=== PATIENT | male | born 1950 | race Caucasian/White ===

== ENCOUNTER 2020-01-07 01:40 | Emergency (ER) | payer MEDICARE, OTHER, SELFPAY ==
[2020-01-07 01:59] VITALS: BP 192/88; PULSE 62; RESP 20; TEMP 36.6; O2SAT 98; BMI 27.2
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
--- NOTE | 2020-01-07 02:52 | PC.NURSE ---
family member is Gerri, phone number to contact is [phone]
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
[2020-01-07 04:27] VITALS: BP 205/110; PULSE 72; RESP 16; O2SAT 97
[2020-01-07 04:28] LABS: Basophils % 0.2 %; Eosinophils % 0.2 %; Hemoglobin 15.4 g/dL (11.7-16.6); Lymphocytes # 1.2 10^3/uL (0.8-4.8); Lymphocytes % 15.1 %; Mean Corpuscular HGB Conc 32.8 g/dL (30.0-36.0); Mean Corpuscular Hemoglobin 30.9 pg (28.0-34.0); Mean Corpuscular Volume 94.2 fL (80-94); Mean Platelet Volume 10.8 fL (7.4-10.4); Monocytes # 0.5 10^3/uL (0.2-0.9); Monocytes % 6.6 %; Neutrophils # 6.4 10^3/uL (1.8-7.7); Neutrophils % 77.7 %; Nucleated Red Blood Cells % 0 %; Platelet Count 152 10^3/cmm (130-400); Red Blood Count 4.99 10^6/uL (4.1-5.3); Red Cell Distribution Width 13.2 % (12.1-15.1); White Blood Count 8.2 10^3/uL (4.0-10.0)
[2020-01-07 04:30] VITALS: BP 206/98
[2020-01-07] MEDS: labetalol 5 mg/mL SDV 20mL 10 MG IVP (04:32)
[2020-01-07 04:48] LABS: Alanine Aminotransferase 20 U/L (0-41); Alkaline Phosphatase 66 IU/L (40-130); Anion Gap 16.7 (5-19); Aspartate Amino Transferase 28 U/L (0-40); Blood Urea Nitrogen 9 mg/dL (8-23); Calcium 9.1 mg/dL (8.5-10.5); Carbon Dioxide 25 mmol/L (22-29); Chloride 103 mmol/L (98-107); Globulin 2.4 g/dL (1.3-4.6); Glomerular Filtration Rate 96.1 mL/min (90-130); Glucose 105 mg/dL (65-115); Osmolality Calculated 288 mOsm/kg (285-295); Potassium 3.7 mmol/L (3.5-5.1); Sodium 141 mmol/L (136-145); Total Bilirubin 0.4 mg/dL (0.15-1.2); Total Protein 7.4 g/dL (6.6-8.7)
[2020-01-07] MEDS: nicardipine 20 MG/200 ML PREMIX 50 MG IV (05:16)
[2020-01-07 05:26] VITALS: BP 203/106; PULSE 85; RESP 20; O2SAT 97
--- NOTE | 2020-01-07 05:29 | PC.NURSE ---
Called report to aguila rice rn at [facility].
[2020-01-07 05:31] VITALS: BP 182/91; PULSE 80; RESP 16; O2SAT 98
== END 2020-01-07 05:52 ==
PROVIDERS: Physician Assistant; Emergency Provider Emergency Medicine; Family Provider Family Medicine; PCP Family Medicine
DX: S06.5X9A Traumatic subdural hemorrhage with loss of consciousness of unspecified duration, initial encounter (principal); Z79.82 Long term (current) use of aspirin; S01.01XA Laceration without foreign body of scalp, initial encounter; Y04.2XXA Assault by strike against or bumped into by another person, initial encounter; Z87.891 Personal history of nicotine dependence; S06.6X9A Traumatic subarachnoid hemorrhage with loss of consciousness of unspecified duration, initial encounter
CPT/HCPCS: 12002; 12345; 70450; 70486; 72125; 80053; 85025; 85610; 85730; 96365; 96375; 99283; 99285; J0131; J3490

== ENCOUNTER 2020-02-28 12:11 | Outpatient (CLI) | payer MEDICARE, OTHER, SELFPAY ==
--- NOTE | 2020-02-28 12:30 | XRR_ITS ---
PROCEDURE INFORMATION: Exam: XR Abdomen, 1 View Exam date and time: 02/28/2020 12:33 PM Age: 69 years old Clinical indication: Condition or disease; Kidney or ureter condition; Calculus (stone) in ureter; Prior surgery; Surgery type: Gb, colon; Additional info: Ureteral calculus TECHNIQUE: Imaging protocol: XR of the abdomen. Views: Frontal supine view of the abdomen. 1 View. COMPARISON: CR XR KUB [id number] 05/17/2019 10:34 AM FINDINGS: Tubes, catheters and devices: Interval removal of previously visualized left double-J catheter. Gastrointestinal tract: Paucity of bowel gas. Incomplete visualization of the superior most abdomen. Intraperitoneal space: Nonspecific subcentimeter calcifications overlying the right upper abdomen and pelvis, which can be better characterized with CT if clinically indicated. Organs: Status post cholecystectomy. Bones/joints: Degenerative change. XR/XR KUB [id number] IMPRESSION: Nonspecific subcentimeter calcifications overlying the right upper abdomen and pelvis, which can be better characterized with CT if clinically indicated.
== END 2020-02-28 12:12 | disposition home or self-care (01) ==
PROVIDERS: Family Provider Family Medicine; PCP Family Medicine; Visit Provider Urology
DX: N20.1 Calculus of ureter (principal)
CPT/HCPCS: 74018; 81001

== ENCOUNTER 2021-02-27 09:32 | Outpatient (CLI) | payer MEDICARE, OTHER, SELFPAY ==
--- NOTE | 2021-02-27 09:30 | XR_ITS ---
WS: [id number] KUB, AP view, 02/27/2021 Clinical Data: UROLITHIASIS Comparison: KUB, 02/28/2020. Findings: No abnormal intraabdominal masses or calcifications are seen. There is no dilatated small bowel or ev idence of obstruction. There are clips in the right upper quadrant from a cholecystectomy. A small amount of colon gas obscu res detail over the kidneys. There are phleboliths in the true pelvis. XR/XR KUB [id number] Impression: Negative KUB.
== END 2021-02-27 09:33 | disposition home or self-care (01) ==
LOC: RAD 09:35
PROVIDERS: PCP Family Medicine; Visit Provider Urology
DX: N20.9 Urinary calculus, unspecified (principal)
CPT/HCPCS: 74018; 81003; G0103

== ENCOUNTER 2021-05-28 17:45 | Emergency (ER) | payer MEDICARE, SELFPAY ==
[2021-05-28 17:56] VITALS: BP 196/90; PULSE 56; RESP 56; TEMP 36.9; O2SAT 98
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
[2021-05-28 19:43] VITALS: BP 182/86; PULSE 62; RESP 22; O2SAT 98
== END 2021-05-28 19:25 | disposition home or self-care (01) ==
PROVIDERS: Emergency Provider Nurse Practitioner Family; PCP Family Medicine
DX: S39.012A Strain of muscle, fascia and tendon of lower back, initial encounter (principal); R07.81 Pleurodynia; Z79.82 Long term (current) use of aspirin; Z87.891 Personal history of nicotine dependence; V59.40XA Driver of pick-up truck or van injured in collision with unspecified motor vehicles in traffic accident, initial encounter
CPT/HCPCS: 71101; 72040; 72100; 99282

== ENCOUNTER → 2021-09-02 13:24 | Outpatient (BNVA) | payer MEDICARE, BC, SELFPAY | PROVIDERS: PCP Family Medicine; Visit Provider Urology | DX: N20.9 Urinary calculus, unspecified (principal); R97.20 Elevated prostate specific antigen [PSA] | CPT/HCPCS: 81003; 84153 ==

== ENCOUNTER 2022-02-19 10:47 | Outpatient (CLI) | payer MEDICARE, BC, SELFPAY ==
--- NOTE | 2022-02-19 10:54 | XR_ITS ---
WS: [id number] XR lumbar spine f/e only [id number] REASON FOR EXAM: VERTEBROGENIC LOW BACK PAIN FINDINGS: Lateral location and extension views only demonstrate no significant vertebral body compression defor mity or focal lesion. Moderate narrowing of the L4-L5 disc space with anterior osteophytes. Degenerative changes in the facet joints L3-S1. No significant spondylolisthesis in the neutral position. No significant vertebral body movement on flexion and extension. No significant XR/XR lumbar spine f/e only [id number] IMPRESSION: Degenerative spondylosis as above. The lumbar spine appears stable compared to 05/28/2021.
== END 2022-02-19 10:48 | disposition home or self-care (01) ==
LOC: RAD 10:50
PROVIDERS: PCP Family Medicine; Visit Provider Nurse Practitioner
DX: M54.50 Low back pain, unspecified (principal); M47.896 Other spondylosis, lumbar region
CPT/HCPCS: 72120

== ENCOUNTER 2022-02-26 09:37 | Outpatient (CLI) | payer MEDICARE, BC, SELFPAY ==
--- NOTE | 2022-02-26 09:48 | MR_ITS ---
WS: [id number] MRI LUMBAR SPINE NONCONTRAST HISTORY: VERTEBROGENIC LOW BACK PAIN COMPARISON: 10/16/2011 TECHNIQUE: Sagittal and axial multisequence imaging is submitted. C3 vertebral body osteophyte contacts the ventral cervical cord. Very slight straightening of the normal lumbar lordosis. L4 retrolisthesis by 2 mm. No acute fracture s or marrow edema. Schmorl's node in the inferior endplate of L3. Small amount of marrow edema in the posterior element on the LEFT of T12. Mild narrowing and desiccation of the disks throughout the lumbar spine. Conus terminates normally at L1-2 disc level. L1-L2: Mild disc bulging. No stenosis. L2-L3: Mild annular disc bulging contacting the ventral thecal sac and the traversing L3 nerve roots. Mild ligamentum flavum hypertrophy and facet arthritis. L3-L4: Mild diffuse annular disc bulging. Disc contacts the thecal sac extends into the subarticular recesses. Disc contacts the traversing L4 nerve roots. Mild central and bilateral subarticular recess and foraminal stenosis. L4-L5: Moderate annular disc bulging with a central disc protrusion extending into the subarticular r ecesses. Mild displacement and contact on the traversing L5 nerve roots. Mild central stenosis. Moder ate RIGHT and severe LEFT foraminal stenosis due to facet disease and disc disease and osteophytosis. 6 mm well-circumscribed area of decreased signal on all sequences extends caudad to the L4-5 disc sp sanjeev just to the LEFT of midline contacting the thecal sac. This may be a small osteophyte or calcifie d disc. Present on the prior examination also. No increase in size. L5-S1: Diffuse annular disc bulging. Shallow RIGHT paracentral disc protrusion disc protrusion contac ts the RIGHT S1 nerve root. Moderate to severe bilateral foraminal stenosis. Retroperitoneal structures are negative as visualized. MR/MR lumbar spine wo con* [id number] IMPRESSION: 1. Mild central, bilateral subarticular recess and foraminal stenosis at L3-4 with disc contacting the traversing L4 nerve roots. 2. Severe LEFT and moderate RIGHT foraminal stenosis at L4-5 due to disc and o steophyte disease. 3. Annular disc bulge with central disc protrusion at L4-5 with significant co ntact on the traversing L5 nerve roots. 4. Moderate to severe bilateral foraminal stenosis at L5-S1. 5. RIGHT paracentral disc protrusion contacts the traversing RIGHT S1 nerve ro ot.
--- NOTE | 2022-02-26 09:51 | XR_ITS ---
WS: [id number] KUB, AP view, 02/26/2022 Clinical Data: UROLITHIASIS Comparison: KUB, 02/27/2021. Findings: No abnormal intraabdominal masses or calcifications are seen. There is no dilatated small bowel or ev idence of obstruction. There are small densities overlying the left kidney but these may be within the transverse colon. There are phleboliths in the true pelvis. There are clips in the right upper quadrant from a cholecys tectomy. XR/XR KUB [id number] Impression: Negative KUB.
== END 2022-02-26 09:38 | disposition home or self-care (01) ==
LOC: RAD 09:39
PROVIDERS: PCP Family Medicine; Visit Provider Nurse Practitioner
DX: M48.061 Spinal stenosis, lumbar region without neurogenic claudication (principal); M51.26 Other intervertebral disc displacement, lumbar region; M53.3 Sacrococcygeal disorders, not elsewhere classified; N20.9 Urinary calculus, unspecified
CPT/HCPCS: 72148; 74018

== ENCOUNTER → 2022-03-10 12:59 | Outpatient (BNVA) | payer MEDICARE, BC, SELFPAY | PROVIDERS: PCP Family Medicine; Visit Provider Urology | DX: N20.9 Urinary calculus, unspecified (principal); R97.20 Elevated prostate specific antigen [PSA]; N52.9 Male erectile dysfunction, unspecified | CPT/HCPCS: 36415; 81003; 84153; 99213 ==

== ENCOUNTER 2022-09-09 10:37 | Outpatient (CLI) | payer MEDICARE, OTHER, SELFPAY ==
[2022-09-09 11:35] LABS: Prostate Specific AG Urology 4.98 ng/mL (0-4)
== END 2022-09-09 10:38 | disposition home or self-care (01) ==
LOC: LAB 10:43
PROVIDERS: PCP Family Medicine; Visit Provider Urology
DX: R97.20 Elevated prostate specific antigen [PSA] (principal)
CPT/HCPCS: 84153

== ENCOUNTER → 2022-09-10 10:02 | Outpatient (BNVA) | payer MEDICARE, OTHER, SELFPAY | PROVIDERS: PCP Family Medicine; Visit Provider Urology | DX: N20.9 Urinary calculus, unspecified (principal); R97.20 Elevated prostate specific antigen [PSA]; N52.9 Male erectile dysfunction, unspecified | CPT/HCPCS: 81003; 99213 ==

== ENCOUNTER 2023-03-31 14:56 | Outpatient (CLI) | payer MEDICARE, OTHER, SELFPAY ==
--- NOTE | 2023-03-31 15:05 | USCV_ITS ---
Jese Lyle Age: 72 Gender: M : 1950 Exam Date: 03/31/2023 15:46 Ordering Phys: Marcial Emmanuel Technologist: Kody Jackson [place] [facility] [place]: retinal artery branch occlusion Risk Factors: Previous Vascular Surgery: Right Brachial BP: / Left Brachial BP: / Right Left Velocity (cm/s) Spectral Plaque Velocity (cm/s) Spectral Plaque Syst/Diast Broadening Syst/Diast Broadening 106.00/11.30 Prox CCA 113.20/ 17.60 90.00/ 11.30 Mid CCA 130.10/ 27.60 63.70/ 13.20 Distal CCA 134.50/ 29.80 172.70/39.60 Prox ICA 111.70/ 40.80 58.10/ 12.00 Mid ICA 78.60 / 21.40 57.50/ 17.50 Distal ICA 106.80/ 30.80 90.60 ECA 132.30 0.65 ICA/CCA 0.60 Antegrade Vertebral Antegrade 44.40/ 15.40 cm/s 88.00/ 26.50 cm/s Tri Subclavian Tri 160.0 144.6 0 0 CONCLUSIONS Right ICA stenosis 50-69%. Moderate atheromatous plaque right carotid bulb/ICA. Left ICA stenosis <50%. Mild atheromatous plaque left carotid bulb/ICA. Intimal thickening in the common carotid arteries and internal carotid arteries bilaterally. Normal antegrade Doppler flow noted in the right vertebral artery. Normal antegrade Doppler flow noted in the left vertebral artery. Andrew Hicks MD (Electronically Signed) Final Date: 31 March 2023 16:47 S
== END 2023-03-31 14:57 | disposition home or self-care (01) ==
PROVIDERS: PCP Family Medicine; Visit Provider Student in an Organized Health Care Education/Training Program
DX: H34.231 Retinal artery branch occlusion, right eye (principal); I65.23 Occlusion and stenosis of bilateral carotid arteries
CPT/HCPCS: 93880

== ENCOUNTER 2023-05-06 08:58 | Outpatient (CLI) | payer MEDICARE, OTHER, SELFPAY ==
--- NOTE | 2023-05-06 09:08 | USCV_ITS ---
Jese Lyle Age: 72 Gender: M : 1950 Exam Date: 05/06/2023 09:29 Ordering Phys: Flaco Rivera MD Technologist: Michaela Mancera Exam Location: [facility] – [place] Indication: BP: 120 / 70 HR: 78 Rhythm: Sinus Technical Quality: Adequate MEASUREMENTS (Male / Female) Normal Values 2D ECHO LV Diastolic Diameter PLAX 4.7 cm 4.2 - 5.9 / 3.9 - 5.3 cm LV Systolic Diameter PLAX 3.9 cm LV Chamber Size 3.3 cm IVS Diastolic Thickness 0.9 cm 0.6 - 1.0 / 0.6 - 0.9 cm IVS Systolic Thickness 1.1 cm LVPW Diastolic Thickness 1.3 cm 0.6 - 1.0 / 0.6 - 0.9 cm LVPW Systolic Thickness 1.4 cm RV Chamber Size 3.5 cm LVOT Diameter 2.0 cm LV Ejection Fraction 2D Teich 28.9 % LV Ejection Fraction MOD 2C 65.0 % LV Ejection Fraction 2C AL 64.4 % LA Diameter 3.0 cm LA Width 3.5 cm LA Height 4.5 cm RA Width 4.9 cm RA Height 5.0 cm Aorta at Sinotubular Diameter 3.4 cm IVC Diameter 1.3 cm M-MODE Aortic Annulus Diameter 3.5 cm LA Ao Ratio MM 1.0 MV E Point Septal Separation 0.4 cm DOPPLER AV Peak Velocity 173.0 cm/s LVOT Peak Velocity 105.0 cm/s AV Area Cont Eq vti 2.4 cm squared AV Area Cont Eq pk 2.0 cm squared MV Area PHT 2.4 cm squared Mitral E to A Ratio 0.8 MV E' Velocity 47.0 cm/s Mitral E to MV E' Ratio 8.4 Mitral E to LV E' Lateral Ratio 7.0 Mitral E to LV E' Septal Ratio 10.8 TR Peak Velocity 194.7 cm/s TR Peak Gradient 15.2 mmHg TR Mean Velocity 125.8 cm/s TR Mean Gradient 7.7 mmHg TR Velocity Time Integral 33.6 cm TV Peak E Velocity 64.0 cm/s Right Atrial Pressure 3.0 mmHg Pulmonary Artery Systolic Pressu 18.2 mmHg RV Acceleration Time 0.1 s RV Ejection Time 0.3 s RV AcT/ET 0.5 FINDINGS Left Ventricle Normal left ventricular size and systolic function, EF 63 %. Grade I/IV diastolic dysfunction (abnormal relaxation filling pattern), normal to mildly elevated filling pressures. Right Ventricle The right ventricle is normal in size and function. Right Atrium The right atrium is normal in size. Left Atrium The left atrium is normal in size. Mitral Valve No gross abnormalities noted Aortic Valve No gross abnormalities noted Tricuspid Valve No gross abnormalities noted .trace tricuspid valve regurgitation. Pulmonic Valve No gross abnormalities noted Pericardium Normal pericardium without effusion. Aorta Normal ascending aorta dimension. IVC The inferior vena cava appears normal. CONCLUSIONS Normal left ventricular size and systolic function, EF 63 %. Grade I/IV diastolic dysfunction (abnormal relaxation filling pattern), normal to mildly elevated filling pressures. Trace tricuspid valve regurgitation. There is no pericardial effusion. There are no intracardiac masses. Estimated pulmonary artery peak systolic pressure within normal limits. No similar previous studies are available for comparison Dr Marquis Castaneda MD FAC (Electronically Signed) Final Date: 07 May 2023 20:32 S
== END 2023-05-06 08:59 | disposition home or self-care (01) ==
LOC: RAD 09:00
PROVIDERS: PCP Family Medicine; Visit Provider Family Medicine
DX: H34.9 Unspecified retinal vascular occlusion (principal); I51.89 Other ill-defined heart diseases
CPT/HCPCS: 93306

== ENCOUNTER 2023-12-27 13:18 | Outpatient (CLI) | payer MEDICARE, OTHER, SELFPAY ==
--- NOTE | 2023-12-27 13:24 | XRR_ITS ---
PROCEDURE INFORMATION: Exam: XR Abdomen Exam date and time: 12/27/2023 1:37 PM Age: 73 years old Clinical indication: Condition or disease; Kidney or ureter condition; Calculus (stone) in kidney; Additional info: HX of nephrolithiasis TECHNIQUE: Imaging protocol: Radiologic exam of the abdomen. Views: Frontal supine view of the abdomen. 1 View. COMPARISON: CR XR KUB [id number] 02/26/2022 10:46 AM FINDINGS: Gastrointestinal tract: Normal. No bowel dilation. Intraperitoneal space: Surgical clips in the right upper quadrant. Organs: Tiny calculi in the left kidney. Vasculature: Several small calcifications in the pelvis are highly likely to be phleboliths. However, in the proper clinical setting a distal ureteral calculus may need to be considered. Bones/joints: Moderate to severe multilevel spondylosis. Mild bilateral hip arthritis. XR/XR KUB [id number] IMPRESSION: 1. Tiny calculi in the left kidney. 2. Several small calcifications in the pelvis are highly likely to be phleboliths. However, in the proper clinical setting a distal ureteral calculus may need to be considered.
[2023-12-27 15:53] LABS: Prostate Specific Antigen Scr 7.46 ng/mL (0-4)
== END 2023-12-27 13:19 | disposition home or self-care (01) ==
PROVIDERS: PCP Family Medicine; Visit Provider Family Medicine
DX: Z12.5 Encounter for screening for malignant neoplasm of prostate (principal); N20.0 Calculus of kidney
CPT/HCPCS: 74018; G0103

== ENCOUNTER 2025-02-05 11:03 | Oncology outpatient (recurring) (ONCR) | payer MEDICARE, OTHER, SELFPAY ==
[2025-01-23 15:51] LABS: Eosinophils # 0.1 10^3/uL (0.0-0.8); Eosinophils % 1.5 %; Lymphocytes # 0.8 10^3/uL (0.8-4.8); Lymphocytes % 24.4 %; Mean Corpuscular HGB Conc 33.5 g/dL (30-55); Mean Corpuscular Hemoglobin 32.5 pg (27-33); Mean Corpuscular Volume 97.1 fl (82-101); Mean Platelet Volume 10.8 fL (7.4-10.4); Monocytes # 0.3 10^3/uL (0.2-0.9); Monocytes % 9.6 %; Neutrophils # 2.13 10^3/uL (1.8-7.7); Neutrophils % 64.2 %; Nucleated Red Blood Cells % 0 %; Platelet Count 148 10^3/cmm (157-399); Red Blood Count 3.81 10^6/uL (3.85-5.65); Red Cell Distribution Width 13.4 % (12.1-15.1); White Blood Count 3.32 10^3/uL (3.29-11.43)
[2025-01-23 16:36] LABS: Hepatitis A Antibody IgM Non-Reactive (Nonreactive); Hepatitis B Core AB, Total Non-Reactive (Nonreactive); Hepatitis B Surface AB < 3.5 (11.5-1000); Hepatitis B Surface Antigen Non-Reactive (Nonreactive); Hepatitis C Virus Antibody Non-Reactive (Nonreactive)
[2025-01-23 16:55] LABS: Folate Level 13.2 ng/mL (4.5-32.2)
[2025-01-23 18:10] LABS: Alanine Aminotransferase 10 U/L (0-41); Albumin Level 4.1 g/dL (3.5-5.2); Alkaline Phosphatase 53 U/L (40-130); Anion Gap 17.6 (5-19); Aspartate Amino Transferase 16 U/L (0-40); Blood Urea Nitrogen 12 mg/dL (8-23); Calcium 9.3 mg/dL (8.5-10.5); Carbon Dioxide 25 mmol/L (22-29); Chloride 102 mmol/L (98-107); Ferritin 70 ng/mL (30-400); Globulin 2.7 g/dL (1.3-4.6); Glucose 97 mg/dL (65-115); Iron 77 ug/dL (59-158); Osmolality Calculated 292 mOsm/kg (285-295); Percent Saturation 24.3 % (20-50); Potassium 3.6 mmol/L (3.5-5.1); Sodium 141 mmol/L (136-145); Thyroid Stimulating Hormone 0.78 uIU/mL (0.27-4.20); Total Bilirubin 0.4 mg/dL (0.15-1.2); Total Iron Binding Capacity 316 mcg/dl; Total Protein 6.8 g/dL (6.6-8.7); Unsaturated Iron Binding 239 ug/dL (112-347); Vitamin B12 496 pg/mL (232-1245)
[2025-01-24 08:54] LABS: PROTEIN, TOTAL 6.6 g/dL (6.1-8.1)
[2025-01-25 15:44] LABS: KAPPA/LAMBDA LIGHT CHAINS FREE 1.51 (0.26-1.65); LAMBDA LIGHT CHAIN, FREE, SERU 12.6 mg/L (5.7-26.3)
[2025-01-25 20:10] LABS: ALPHA 1 GLOBULIN 0.3 g/dL (0.2-0.3); ALPHA 2 GLOBULIN 0.9 g/dL (0.5-0.9); BETA 1 GLOBULIN 0.4 g/dL (0.4-0.6); BETA 2 GLOBULIN 0.4 g/dL (0.2-0.5); GAMMA GLOBULIN 0.7 g/dL (0.8-1.7)
[2025-01-27 15:49] LABS: Immunofixation Serum Normal pattern.
--- NOTE | 2025-02-05 11:13 | US_ITS ---
WS: [id number] Complete ABDOMINAL ULTRASOUND HISTORY: IRON DEFICIENCY COMPARISON: 05/31/2018 Liver: 15.1 cm in length. Normal size liver and echogenicity. No bile duct dilatation or mass. Portal Vein: Normal hepatopetal flow with monophasic waveform. Gallbladder: Prior cholecystectomy. CBD: 0.4 cm Pancreas: Normal size and echogenicity. Right kidney: 12.2 cm x 5.2 x 5.5 cm. Cortex:1.0 cm. Normal size and echogenicity. No hydronephrosis or mass. Left kidney: 9.4 cm x 5.1 cm x 5.3 cm. Cortex: 1.0 cm. Normal size and echogenicity. No hydronephrosis or mass. Spleen: 9.5 cm. Normal size and echogenicity. Aorta and IVC: Limited. US/US abdomen complete* [id number] Impression: 1. Prior cholecystectomy. 2. Unremarkable liver. 3. Normal sized spleen.
== END 2025-02-19 23:59 | disposition home or self-care (01) ==
LOC: ONCMED 11:04 → RAD 02-06 00:01
PROVIDERS: PCP Family Medicine; Visit Provider Internal Medicine Medical Oncology
DX: E61.1 Iron deficiency; Z90.49 Acquired absence of other specified parts of digestive tract; Z53.9 Procedure and treatment not carried out, unspecified reason
CPT/HCPCS: 36415; 76700; 80053; 82607; 82728; 82746; 83540; 83550; 83883; 84155; 84165; 84443; 85025; 86334; 86705; 86706; 86709; 86803; 87340; 99205

== ENCOUNTER 2025-03-06 13:30 | Oncology outpatient (recurring) (ONCR) | payer MEDICARE, OTHER, SELFPAY | END 2025-03-22 23:59 | disposition home or self-care (01) | PROVIDERS: PCP Family Medicine; Visit Provider Nurse Practitioner | DX: C61 Malignant neoplasm of prostate (principal); D70.9 Neutropenia, unspecified; D69.6 Thrombocytopenia, unspecified; R53.83 Other fatigue; F10.90 Alcohol use, unspecified, uncomplicated | CPT/HCPCS: 99214 ==

== ENCOUNTER 2025-06-04 12:16 | Oncology outpatient (recurring) (ONCR) | payer MEDICARE, OTHER, SELFPAY ==
[2025-06-04 12:40] LABS: Hematocrit 35.3 % (37-53); Hemoglobin 11.70 g/dL (11.27-16.99); Mean Corpuscular HGB Conc 33.1 g/dL (30-55); Mean Corpuscular Hemoglobin 31.5 pg (27-33); Mean Corpuscular Volume 95.1 fl (82-101); Nucleated Red Blood Cells % 0 %; Platelet Count 112 10^3/cmm (157-399); Red Blood Count 3.71 10^6/uL (3.85-5.65); White Blood Count 3.24 10^3/uL (3.29-11.43)
[2025-06-04 13:01] LABS: Alanine Aminotransferase 13 U/L (0-41); Albumin Level 4.1 g/dL (3.5-5.2); Alkaline Phosphatase 50 U/L (40-130); Anion Gap 15.8 (5-19); Aspartate Amino Transferase 16 U/L (0-40); Blood Urea Nitrogen 16 mg/dL (8-23); Calcium 8.7 mg/dL (8.5-10.5); Carbon Dioxide 25 mmol/L (22-29); Chloride 105 mmol/L (98-107); Creatinine Clr Calc Pharmacy 78.2442; Globulin 2.2 g/dL (1.3-4.6); Glucose 142 mg/dL (65-115); Osmolality Calculated 298 mOsm/kg (285-295); Potassium 3.8 mmol/L (3.5-5.1); Sodium 142 mmol/L (136-145); Total Protein 6.3 g/dL (6.6-8.7)
[2025-06-05 08:41] LABS: PROTEIN, TOTAL 6.0 g/dL (6.1-8.1)
[2025-06-05 14:04] LABS: KAPPA LIGHT CHAIN, FREE, SERUM 19.8 mg/L (3.3-19.4); KAPPA/LAMBDA LIGHT CHAINS FREE 1.32 (0.26-1.65); LAMBDA LIGHT CHAIN, FREE, SERU 15.0 mg/L (5.7-26.3)
[2025-06-05 18:20] LABS: ALPHA 1 GLOBULIN 0.2 g/dL (0.2-0.3); ALPHA 2 GLOBULIN 0.7 g/dL (0.5-0.9); BETA 1 GLOBULIN 0.4 g/dL (0.4-0.6); BETA 2 GLOBULIN 0.3 g/dL (0.2-0.5)
== END 2025-06-22 23:59 | disposition home or self-care (01) ==
PROVIDERS: PCP Family Medicine; Visit Provider Nurse Practitioner
DX: D70.9 Neutropenia, unspecified (principal); D69.6 Thrombocytopenia, unspecified; C61 Malignant neoplasm of prostate; R53.83 Other fatigue; F10.90 Alcohol use, unspecified, uncomplicated; R03.0 Elevated blood-pressure reading, without diagnosis of hypertension
CPT/HCPCS: 36415; 80053; 82784; 83615; 83883; 84155; 84165; 85025; 86334; 99213